=== PATIENT | male | born 1995 | race Caucasian/White ===

== ENCOUNTER 2021-02-21 15:14 | Emergency (ER) | payer BC, SELFPAY ==
[2021-02-21 15:25] VITALS: BP 135/86; PULSE 69; RESP 20; TEMP 36.6; O2SAT 100; BMI 29.9
[2021-02-21 15:56] LABS: Basophils # 0.1 K/mm3 (0-0.2); Basophils % 1.1 % (0.1-2.0); Eosinophils # 0.3 K/mm3 (0.0-0.4); Eosinophils % 3.6 % (0.1-12.0); Hematocrit 49.2 % (42.0-52.0); Lymphocytes # 2.1 K/mm3 (0.7-4.5); Lymphocytes % 25.8 % (10-50); Mean Corpuscular HGB Conc 34.6 g/dL (31.8-35.4); Mean Corpuscular Hemoglobin 29.5 pg (27.0-31.2); Mean Corpuscular Volume 85.2 fl (80-94); Mean Platelet Volume 7.4 fl (7.4-10.4); Monocytes # 0.4 K/mm3 (0.1-1.0); Monocytes % 4.8 % (1.7-9.3); Neutrophils # 5.2 K/mm3 (1.8-7.8); Neutrophils % 64.5 % (37.0-80.0); Platelet Count 250 K/mm3 (142-424); Red Blood Count 5.77 M/mm3 (4.60-6.20); Red Cell Distribution Width 13.4 % (11.5-17.5)
[2021-02-21 16:07] LABS: Anion Gap 15.4 mEq/L (5-15); Blood Urea Nitrogen 11 mg/dl (9-20); Calcium 9.3 mg/dl (8.4-10.2); Carbon Dioxide 31 mmol/L (22.0-30.0); Chloride 98 mmol/L (98-107); Creatinine Clearance Estimated 166 mL/min (50-200); Estimated Glomerular Filt Rate 92 ml/min (>60); GFR (African American) 111 ML/MIN (>60); Glucose 96 mg/dl (74-100); Potassium 3.4 mmoL/L (3.5-5.1); Sodium 141 mmol/L (136-145); Uric Acid 7.6 mg/dl (3.5-8.5)
--- NOTE | 2021-02-21 16:11 | HMH.EDUTC ---
[facility] [place] Disposition Clinical Impression: Swelling of left elbow, Left elbow pain Disposition: Home, Self-Care Condition on Discharge: Good Instructions: DI for Elbow Bursitis Additional Instructions: Rest the extremity, Wear the tonja wrap for compression, Elevate the extremity as tolerated while you are resting. Take ibuprofen for pain. Follow up with Dr. Vasquez (orthopedics). I put in a referral but you need to call his office and schedule an appointment. Follow up with your regular doctor. GO TO THE ER FOR ANY WORSENING SYMPTOMS Don't be putting pressure on your elbow for the next several days. Prescriptions: cephALEXin [cephALEXin 500mg capsule] 500 mg PO Q6H 10 Days #40 cap Transmission Status: Received by [id number] methylPREDNISolone [Medrol] 4 mg PO DIRECTED 6 Days #21 tab.[email or web address] Transmission Status: Received by [id number] Referrals: Provider,MD Sai [Primary Care Provider] - Karel Vasquez MD [Staff Physician] - Forms: Work/School Release Time of Disposition: 17:03 Medical Decision Making - Medical Records Medical records reviewed: No: I reviewed the patient's medical records. - Dean Inquiry Pt receiving controlled substance: No Vital Signs: 02/21/21 15:25 02/21/21 16:55 Temperature 97.9 F 97.9 F Temperature Source Oral Pulse Rate 69 Pulse Rate [Right Brachial] 69 Respiratory Rate 20 20 Blood Pressure 135/86 Blood Pressure [Right Arm] 135/86 Blood Pressure Mean [Right Arm] 102 Blood Pressure Source [Right Arm] Automatic Cuff Blood Pressure Position [Right Arm] Sitting 02 Sat by Pulse Oximetry 100 Oxygen Delivery Method Room Air - Lab Data Lab Results 02/21/21 15:36: Sodium 141, Potassium 3.4 L, Chloride 98, Carbon Dioxide 31 H, Anion Gap 15.4 H, BUN 11, Creatinine 1.00, Estimated Creat Clear 166, Estimated GFR 92, Est GFR ( Amer) 111, Glucose 96, Uric Acid 7.6, Calcium 9.3 02/21/21 15:39: WBC 8.0, RBC 5.77, Hgb 17.0, Hct 49.2, MCV 85.2, MCH 29.5, MCHC 34.6, RDW 13.4, Plt Count 250, MPV 7.4, Neut % (Auto) 64.5, Lymph % (Auto) 25.8, Powell % (Auto) 4.8, Eos % (Auto) 3.6, Baso % (Auto) 1.1, Neut # (Auto) 5.2, Lymph # (Auto) 2.1, Powell # (Auto) 0.4, Eos # (Auto) 0.3, Baso # (Auto) 0.1 Result diagrams: 02/21/21 15:39 02/21/21 15:36 Orders (Tests/Meds): ED MEDICATIONS Discontinued Medications Generic Name Dose Route Start Last Admin Trade Name Jaymeq PRN Reason Stop Dose Admin Ceftriaxone Sodium 1 gm 02/21/21 16:39 02/21/21 16:45 Ceftriaxone 1gm Vial IM 02/21/21 16:40 1 gm ONCE ONE Administration Protocol Lidocaine HCl 0 ml 02/21/21 16:39 02/21/21 16:45 Lidocaine 1% 5ml Pf Vial IM 02/21/21 16:40 2.1 ml ONCE ONE Administration Methylprednisolone Sodium Succinate 125 mg 02/21/21 16:39 02/21/21 16:45 Methylprednisolone Sod Succ 125mg Vial IM 02/21/21 16:40 125 mg ONCE ONE Administration - Radiology Data #1 Image(s): Elbow Image Reviewed: Yes I reviewed the patient's radiology image, Yes I have reviewed radiologist's interpretation Preliminary Findings: Abnormal, No Fracture Seen PROCEDURE: XR ELBOW LT MIN 3V CLINICAL INDICATION: left elbow pain and swelling, no injury COMPARISON: No exams were available for comparison FINDINGS: No fracture or dislocation. No lytic or blastic change. There is normal mineralization. The joint spaces are well-preserved. No significant degenerative/arthritic changes. No erosive changes evident. Other findings:There is mild soft tissue swelling posteriorly. No displaced fat pad. IMPRESSION: Soft tissue swelling otherwise negative Dictated by: Horacio Plunkett MD 02/21/2021 16:34 Horacio Plunkett MD in [place] 02/21/2021 16:34 [facility] [place] HPI - General Stated complaint: L arm swollen tender Time Seen by Provider: 02/21/21 15:35 Mode of Arrival: Ambulatory Source of Information: Patient Limitations: No Limitations Description of
[2021-02-21 16:55] VITALS: BP 135/86; PULSE 69; RESP 20; TEMP 36.6; O2SAT 100
== END 2021-02-21 17:09 | disposition home or self-care (01) ==
PROVIDERS: Emergency Provider Nurse Practitioner Family
DX: M25.422 Effusion, left elbow (principal); M25.522 Pain in left elbow
CPT/HCPCS: 73080; 80048; 84550; 85025; 96372; 99202; G0463

== ENCOUNTER 2022-06-10 06:36 | Emergency (ER) | payer BC, SELFPAY ==
[2022-06-10 06:37] VITALS: BP 133/64; PULSE 85; RESP 16; TEMP 36.7; O2SAT 98; BMI 33.9
--- NOTE | 2022-06-10 06:45 | XR_ITS ---
FINAL REPORT CLINICAL HISTORY: low back pain into left hip and leg. FINDINGS: LUMBAR SPINE Three views demonstrate no acute fracture. The disc spaces are well preserved. There is no malalignment. IMPRESSION: No acute process. Reviewed, Interpreted and Dictated by Harjit Alexandra III, MD Transcribed by Denise Franklin Authenticated and [facility][1]
--- NOTE | 2022-06-10 06:56 | HMH.EDBACK ---
Discharge Plan Disposition Patient Disposition: Home, Self-Care Prescriptions Prescriptions: New prednisone [prednisone] 20 mg tablet 20 mg PO BID Qty: 10 0RF tizanidine [Zanaflex] 4 mg capsule 4 mg PO Q8H PRN (Reason: muscle spasticity) Qty: 14 0RF Referrals Follow up/Referrals: Provider,Referral, [Primary Care Provider] - See instructions Clinical Impressions Clinical Impression: Lumbar radiculopathy Instructions Patient Instructions: DI for Back Pain With Sciatica Discharge ED Provider: Andrei Franklin Back Pain HPI General Chief Complaint: Back Pain/Injury Stated Complaint: low back pain Time Seen by Provider: 06/10/22 06:56 Mode of Arrival: Ambulatory Source of Information: Patient, Spouse and Medical Record Limitations: No Limitations Description of Symptoms (Recalled from ER Triage Doc. by RN): pt states on wednesday afternoon lower back began hurting radiating down lt leg. pt denies any accident/ trauma. History of Present Illness HPI Narrative: atraumatic lt sided back with rad to lt lower leg with no fever/rash - no cauda equina sx and has issues with lumbar disc in past MD Complaint: back pain Onset (ago): day(s) Duration: intermittent Similar Symptoms Previously: Yes Location: lumbar spine Severity: moderate Quality: sharp Radiation: left leg Exacerbating factors: sitting upright Associated symptoms: denies other symptoms Treatments prior to arrival: NSAIDS Related Data Previous Rx's Medication Instructions Recorded prednisone 20 mg tablet 20 mg PO BID #10 tabs 06/10/22 tizanidine 4 mg capsule (Zanaflex) 4 mg PO Q8H PRN muscle spasticity 06/10/22 #14 caps Allergies Allergy/AdvReac Type Severity Reaction Status Date / Time No Known Allergies Allergy Verified 12/19/18 09:40 [facility] Social History Smoking Status: Never smoker alcohol intake: never current occupational status: other Travel in the last 8 weeks: None ROS Obtained: Yes All systems reviewed & no additional complaints except as documented Physical Exam General General appearance: alert Head Head exam: normocephalic Eye Eye exam: Present PERRL and EOMI ENT ENT exam: Present mucous membranes moist Neck Neck exam: Present trachea midline Respiratory Respiratory exam: Absent respiratory distress Cardiovascular Cardiovascular exam: Present regular rate Abdominal Exam Abdominal exam: Present soft Extremities Exam Extremities exam: Absent edema Back Exam Back exam: Present tenderness, paraspinal tenderness and straight leg raise (L); Absent full ROM or CVA tenderness (L) Neurological Exam Neurological exam: Present alert, oriented X3 and CN II-XII intact; Absent motor sensory deficit Psychiatric Psychiatric exam: Present normal affect Skin Skin exam: Absent rash Medical Decision Making Medical Records Medical records reviewed: Yes I reviewed the patient's medical records. Dean Inquiry Pt receiving controlled substance: No Vital Signs: 06/10/22 06:37 Temperature 98.1 F Temperature Source Oral Pulse Rate [Right] 85 Respiratory Rate 16 Blood Pressure [Right Arm] 133/64 Blood Pressure Mean [Right Arm] 87 02 Sat by Pulse Oximetry 98 Lab Data Lab results reviewed: Yes I reviewed the patient's lab results. Orders (Tests/Meds): ORDERS Category Date Time Status Lumbar spine XR 2-3 views [XR lumbar spine 2-3V] Stat Exams 06/10/22 06:45 Ordered Radiology Data #1: Image(s): L-Spine Image Reviewed: Yes I reviewed the patient's radiology image Preliminary Findings: No Fracture Seen Medical Decision Narrative: has radicular pain and will treat and refer to pcp Critical Care Time Critical Care Time Critical Care Time: No Attestation: On 06/10/22, the high probability of a clinically significant, sudden or life threatening deterioration of the following system(s) required my full and direct attention, intervention and personal management. Th
[2022-06-10 07:10] VITALS: BP 130/90; PULSE 84; RESP 16; TEMP 37.1; O2SAT 99
== END 2022-06-10 07:15 | disposition home or self-care (01) ==
PROVIDERS: Emergency Provider Emergency Medicine
DX: M54.16 Radiculopathy, lumbar region (principal); Z79.52 Long term (current) use of systemic steroids; Z79.899 Other long term (current) drug therapy
CPT/HCPCS: 72100; 99283